=== PATIENT | male | born 1955 | race Hispanic/Latino ===

== ENCOUNTER → 2018-03-19 | Day surgery (SDC) | payer OTHER ==
[2018-03-15 12:43] LABS: BASOPHILS % 0.5 % (0.0-1.0); EOSINOPHILS # (AUTO) 0.1 (0.0-0.4); EOSINOPHILS % 1.7 % (0.0-6.0); HEMATOCRIT 48.1 % (38.2-49.6); HEMOGLOBIN 16.3 g/dL (14.0-18.0); LYMPHOCYTES # (AUTO) 1.8 (1.0-3.2); LYMPHOCYTES % 23.1 % (18.0-39.1); MEAN CORPUSCULAR HEMOGLOBIN 29.9 pg (28-32); MEAN CORPUSCULAR HGB CONC 33.9 g/dL (31-35); MEAN CORPUSCULAR VOLUME 88.1 fL (81-99); MONOCYTES # (AUTO) 0.5 (0.2-0.8); MONOCYTES % 6.8 % (4.4-11.3); NEUTROPHILS # (AUTO) 5.2 (2.1-6.9); NEUTROPHILS % 67.8 % (38.7-80.0); PLATELET COUNT 201 x10e3/uL (140-360); RED BLOOD COUNT 5.46 x10e6/uL (4.3-5.7); RED CELL DISTRIBUTION WIDTH 12.9 % (11.7-14.4)
[2018-03-15 12:57] LABS: ANION GAP 13.1 mmol/L (8-16); BLOOD UREA NITROGEN 22 mg/dL (7-26); BUN/CREATININE RATIO 21 (6-25); CARBON DIOXIDE 28 mmol/L (22-29); CHLORIDE 109 mmol/L (98-107); CREATININE, SERUM 1.06 mg/dL (0.72-1.25); EST GLOMERULAR FILTRATION RATE > 60 ML/MIN (60-); GLUCOSE 94 mg/dL (74-118); POTASSIUM 5.1 mmol/L (3.5-5.1); SODIUM 145 mmol/L (136-145)
--- NOTE | 2018-03-15 13:25 | Diagnostic Imaging Report ---
PROCEDURE: Frontal and lateral views of the chest. COMPARISON: None. INDICATIONS: PRE OPERATIVE CHEST X-RAY FOR HERNIA REPAIR FINDINGS: Lines/tubes: None. Lungs: Limited by low lung volumes. There is no evidence of pneumonia or pulmonary edema. Pleura: There is no pleural effusion or pneumothorax. Heart and mediastinum: The heart and the mediastinal silhouettes are accentuated by low lung volumes. Bones: No acute bony abnormality. IMPRESSION: 1. No acute cardiopulmonary disease. Dictated by: Sander Cotton M.D. on 03/15/2018 at 13:30 Electronically approved by: Sander Cotton M.D. on 03/15/2018 at 13:30
[~2018-03-19] MED LIST: BUPIVACAINE 0.25%/EPI 30ML SDV INJ ONE; DEXAMETHASONE SOD PHOS INJ 4 MG/ML VIAL ONE; ESMOLOL HCL 100MG/10ML 10 MG/ML VIAL ONE; FENTANYL CITRATE/PF 100MCG/2 ML INJ ONE; GLYCOPYRROLATE INJ 1MG/ 5 ML SYR ONE; KETOROLAC TROMETHAMINE 30 MG/ML VIAL ONE; LIDOCAINE HCL 2% LOCAL INJ 5 ML SDV VIAL INJ ONE; MIDAZOLAM HCL 2 MG/2 ML VIAL ONE; NEOSTIGMINE 5 MG/5ML SYR ONE; OMEPRAZOLE40 MG PO; ONDANSETRON HCL INJ 2 MG/ML VIAL ONE; PROPOFOL IV EMULSION 10 MG/ML 20 ML VIAL ONE; ROCURONIUM BROMIDE 10 MG/ML 5ML VIAL ONE; SEVOFLURANE INHAL SOLN 250 ML PEN BTL ONE
--- NOTE | 2018-03-19 13:06 | Operative Report ---
DATE OF PROCEDURE: March 19, 2018 PREOPERATIVE DIAGNOSIS: Ventral hernia. POSTOPERATIVE DIAGNOSIS: Ventral hernia. OPERATION PERFORMED: Repair of ventral hernia with mesh. TERMINAL BLOCK ASSEMBLER: JESSICA Bill. ANESTHESIA: General. COMPLICATIONS: None. ESTIMATED BLOOD LOSS: Minimal. DESCRIPTION OF PROCEDURE: With the patient lying in bed in the supine position under good general anesthesia, the abdomen was prepped with Betadine solution and draped in the usual manner. A midline incision was made in the supraumbilical region, carried down through the subcutaneous tissue and immediately a hernia sac was encountered. There was actually two defects, one at the umbilicus and one above the umbilicus. The fascia was then dissected all the way around. The umbilicus was then detached from the hernia sac and the two defects were then closed transversely using interrupted sutures of 0 Ethibond. Ultrapro mesh was then placed to cover the entire area and sutured all the way around using 0 Ethibond. The whole area was thoroughly irrigated. Perfect hemostasis was ascertained. All layers were infiltrated on the way out with solution of quarter percent Marcaine. The umbilicus was tacked back down to the midline with 3-0 Vicryl. The subcutaneous tissue was approximated with 3-0 Vicryl and the skin was closed with clips. A dressing was applied. The sponge, lap and needle count was correct. The patient tolerated the procedure well and returned to the recovery room in stable condition. Job#: [id number] PARRIS
== END | disposition home or self-care (01) ==
LOC: OR 08:21
PROVIDERS: ATTEND Surgery
DX: K43.9 Ventral hernia without obstruction or gangrene (principal); K21.9 Gastro-esophageal reflux disease without esophagitis; R06.83 Snoring; Z01.810 Encounter for preprocedural cardiovascular examination; Z01.812 Encounter for preprocedural laboratory examination; Z01.818 Encounter for other preprocedural examination
CPT/HCPCS: 36415; 49560; 49568; 71046; 80048; 85025; 93005; C1781; J1100; J1885; J2001; J2250; J2405; J3490

== ENCOUNTER 2019-12-20 19:22 | Emergency (ER) | payer OTHER ==
[~2019-12-20] VITALS: Ht 172.7 cm; Wt 95.3 kg
[~2019-12-20 19:22] MED LIST changes: -BUPIVACAINE 0.25%/EPI 30ML SDV INJ ONE; -DEXAMETHASONE SOD PHOS INJ 4 MG/ML VIAL ONE; -ESMOLOL HCL 100MG/10ML 10 MG/ML VIAL ONE; -FENTANYL CITRATE/PF 100MCG/2 ML INJ ONE; -GLYCOPYRROLATE INJ 1MG/ 5 ML SYR ONE; -KETOROLAC TROMETHAMINE 30 MG/ML VIAL ONE; -LIDOCAINE HCL 2% LOCAL INJ 5 ML SDV VIAL INJ ONE; -MIDAZOLAM HCL 2 MG/2 ML VIAL ONE; -NEOSTIGMINE 5 MG/5ML SYR ONE; -ONDANSETRON HCL INJ 2 MG/ML VIAL ONE; -PROPOFOL IV EMULSION 10 MG/ML 20 ML VIAL ONE; -ROCURONIUM BROMIDE 10 MG/ML 5ML VIAL ONE; -SEVOFLURANE INHAL SOLN 250 ML PEN BTL ONE
[2019-12-20] MEDS ORDERED: DIATRIZOATE MEGL/DIATRIZOA SOD 30 ML BTL PO ONE (20:03)
[2019-12-20 20:17] LABS: BASOPHILS % 0.5 % (0.0-1.0); EOSINOPHILS # (AUTO) 0.1 (0.0-0.4); HEMATOCRIT 46.7 % (38.2-49.6); HEMOGLOBIN 16.1 g/dL (14.0-18.0); LYMPHOCYTES # (AUTO) 1.3 (1.0-3.2); LYMPHOCYTES % 16.5 % (18.0-39.1); MEAN CORPUSCULAR HGB CONC 34.5 g/dL (31-35); MONOCYTES # (AUTO) 0.6 (0.2-0.8); MONOCYTES % 7.5 % (4.4-11.3); NEUTROPHILS % 74.3 % (38.7-80.0); PLATELET COUNT 188 x10e3/uL (140-360); RED BLOOD COUNT 5.37 x10e6/uL (4.3-5.7); RED CELL DISTRIBUTION WIDTH 12.9 % (11.7-14.4)
[2019-12-20 20:23] LABS: CLARITY,URINE SL CLOUDY (CLEAR); COLOR,URINE YELLOW (YELLOW)
[2019-12-20 20:24] LABS: BILIRUBIN,URINE NEGATIVE (NEGATIVE); KETONES,URINE NEGATIVE (NEGATIVE); LEUKOCYTE ESTERASE ,URINE NEGATIVE (NEGATIVE); NITRITE,URINE NEGATIVE (NEGATIVE); PROTEIN,URINE DIPSTICK NEGATIVE (NEGATIVE); URINE UROBILINOGEN 0.2 mg/dL (0.2 - 1)
[2019-12-20 20:32] LABS: ALBUMIN/GLOBULIN RATIO 1.2 (0.8-2.0); ANION GAP 12.9 mmol/L (8-16); CALCIUM 9.5 mg/dL (8.4-10.2); CREATININE, SERUM 1.54 mg/dL (0.72-1.25); POTASSIUM 3.9 mmol/L (3.5-5.1)
[2019-12-20 20:39] LABS: BACTERIA,URINE RARE /HPF; EPITHELIAL CELLS,URINE FEW /LPF; RBC,URINE 0-5 /HPF (0-5)
[2019-12-20] MEDS ORDERED: ONDANSETRON HCL INJ 2MG/ML 2ML 2 MG/ML VIAL IV STA ×2 (21:02→22:44)
[2019-12-20] MEDS ORDERED: MORPHINE SULFATE INJ 4 MG/ML INJ 1ML IV STA ×2 (21:02→22:44)
[2019-12-20] MEDS ORDERED: SODIUM CHLORIDE 0.9% 500ML 500 ML IV ONE (21:30)
--- NOTE | 2019-12-20 21:48 | Diagnostic Imaging Report ---
EXAM: Scrotal Ultrasound with Duplex INDICATION: Right testicular pain COMPARISON: None TECHNIQUE: Transverse and longitudinal images were obtained of the scrotum with grayscale imaging, color Doppler and spectral waveform analysis. FINDINGS: Right testis: Size: 3.8 x 2.2 x 3 cm, normal in size. Echogenicity: Normal Mass/Cysts: None Left testis: Size: 3.9 x 2.1 x 2.5 cm, normal in size. Echogenicity: Normal Mass/Cysts: None Epididymis: Appearance: Normal in size without increased vascularity. Mass/Cysts: None Extratesticular: Masses: None Hydrocele: Trace bilateral Varicocele: Small left Doppler: Normal arterial flow to both testes and symmetrical flow on color Doppler evaluation is seen. No evidence of testicular torsion. IMPRESSION: 1. No evidence of testicular torsion. 2. Questionably increased right testicular vascularity may reflect orchitis. 3. Small left varicocele. Signed by: Taj Baum MD on 12/20/2019 9:44 PM
[2019-12-20] MEDS ORDERED: SODIUM CHLORIDE 0.9% 50ML 50 ML ONE (22:18)
[2019-12-20] MEDS ORDERED: IOPAMIDOL 370 MG/ML 200 ML INFUS..BTL INJ ONE (22:18)
--- NOTE | 2019-12-20 22:41 | Diagnostic Imaging Report ---
EXAM: CT Abdomen and Pelvis WITH contrast INDICATION: ^RLQ pain, h/o of hernia COMPARISON: Scrotal ultrasound 12/20/2019 TECHNIQUE: Abdomen and pelvis were scanned utilizing a multidetector helical scanner from the lung base to the pubic symphysis after administration of IV contrast. Coronal and sagittal reformations were obtained. Routine protocol was performed. Scan was performed when during portal venous phase. IV CONTRAST: 100 mL of Isovue 370 ORAL CONTRAST: Water COMPLICATIONS: None RADIATION DOSE: Total DLP: 857 mGy*cm Estimated effective dose: (DLP x 0.015 x size factor) mSv CTDIvol has been reviewed. It is below the limits set by the Radiation Protocol Committee (RPC). Dose modulation, iterative reconstruction, and/or weight based adjustment of the mA/kV was utilized to reduce the radiation dose to as low as reasonably achievable. FINDINGS: LINES and TUBES: None. LOWER THORAX: Unremarkable HEPATOBILIARY: Few low-density lesions of the hepatic dome, likely cysts. No concerning hepatic lesion. No biliary ductal dilation. GALLBLADDER: Surgically absent. SPLEEN: No splenomegaly. PANCREAS: No focal masses or ductal dilatation. ADRENALS: No adrenal nodules KIDNEYS/URETERS: Kidneys enhance symmetrically. No hydronephrosis. No cystic or solid mass lesions. No stones. GI TRACT: No abnormal distention, wall thickening, or evidence of bowel obstruction. Appendix is normal. PELVIC ORGANS/BLADDER: Unremarkable. LYMPH NODES: No lymphadenopathy. VESSELS: Scattered atherosclerotic calcifications. PERITONEUM / RETROPERITONEUM: No free air or fluid. BONES: Unremarkable. SOFT TISSUES: Tiny bilateral inguinal hernias. Probable left varicocele. IMPRESSION: No acute abdominal or pelvic abnormality. Signed by: Taj Baum MD on 12/20/2019 10:38 PM
[2019-12-20 22:55] VITALS: BP 154/78
== END 2019-12-20 23:06 | disposition home or self-care (01) ==
LOC: ER 19:22
DX: N50.811 Right testicular pain (principal); I86.1 Scrotal varices; N28.9 Disorder of kidney and ureter, unspecified; M54.9 Dorsalgia, unspecified; G89.29 Other chronic pain
CPT/HCPCS: 36415; 74177; 76870; 80053; 81001; 83690; 85025; 93976; 99284; J2270; J2405; J7040; Q9967